=== PATIENT | male | born 1990 | race Caucasian/White ===

== ENCOUNTER 2018-12-21 09:07 | Emergency (ER) | payer OTHER ==
[2018-12-21] MEDS ORDERED: fentaNYL 100 MCG/2 ML SDV IM ONE (10:44)
--- NOTE | 2018-12-21 10:45 | CRLCR ---
INDICATION: Trauma with pain, punched a wall. TECHNIQUE: Three view right hand COMPARISON: None FINDINGS: There is no acute obliquely oriented and mildly displaced intra-articular fracture involving the proximal aspect of the right 3rd metacarpal bone. A small amount of periarticular calcification is noted in the medial carpal articulation region. No other fracture is seen. IMPRESSION: 1. Acute intra-articular and mildly displaced fracture involving the proximal aspect of the right 3rd metacarpal bone. 2. Other findings are as discussed above. Dictated by Yan Squires MD @ Dec 21 2018 10:41AM Signed by Dr. Yan Squires @ Dec 21 2018 10:44AM
--- NOTE | 2018-12-21 10:51 | EDM.PDOC ---
ED HPI GENERAL MEDICAL PROBLEM - General Chief Complaint: Upper Extremity Injury/Pain Stated Complaint: PUNCH THE WALL AT HOME Time Seen by Provider: 12/21/18 10:47 Source of Information: Reports: Patient, RN Notes Reviewed History Limitations: Reports: No Limitations - History of Present Illness INITIAL COMMENTS - FREE TEXT/NARRATIVE: 28-year-old gentleman presents emergency department today after punching a wall he is experiencing pain in his right hand - Related Data Allergies Allergy/AdvReac Type Severity Reaction Status Date / Time No Known Allergies Allergy Verified 12/21/18 09:27 Home Meds: Home Meds NK [No Known Home Meds] 12/21/18 [History] Past Medical History Neurological History: Reports: Brain Injury Social & Family History - Tobacco Use Smoking Status *Q: Current Every Day Smoker Years of Tobacco use: 8 Packs/Tins Daily: 0.2 Review of Systems - Review of Systems Review Of Systems: See Below Constitutional: Reports: No Symptoms Musculoskeletal: Reports: Hand Pain ED EXAM, GENERAL - Physical Exam Exam: See Below Free Text/Narrative:: Examination of the right hand I do appreciate some edema over metacarpal 3 as well as tenderness radial pulses +2 there range of motion or sensation is intact Exam Limited By: No Limitations General Appearance: Alert, WD/WN, No Apparent Distress ED TRAUMA EXTREMITY PROCEDURES - Splinting Right Upper Extremity Splint Site: Third metacarpal right hand Pre-Procedure NV Status: Normal Post-Procedure NV Status: Normal Splint Material: Fiberglass Splint Design: Volar Applied & Form Fitted By: Provider, Nurse Provider Post-Splint Application NV Check: NV Status Normal, Good Position Complications: No Course - Vital Signs Last Recorded V/S: Last Vital Signs Temp 98.3 F 12/21/18 09:32 Pulse 79 12/21/18 09:32 Resp 14 12/21/18 09:32 BP 140/87 12/21/18 09:32 Pulse Ox 95 12/21/18 09:32 - Orders/Labs/Meds Meds: Medications Discontinued Medications Generic Name Dose Route Start Last Admin Trade Name Freq PRN Reason Stop Dose Admin Fentanyl 50 mcg 12/21/18 10:44 Sublimaze IM 12/21/18 10:45 ONETIME ONE Departure - Departure Time of Disposition: 10:52 Disposition: Home, Self-Care 01 Condition: Fair Clinical Impression: Fracture of metacarpal base of right hand, closed Qualifiers: Encounter type: initial encounter Metacarpal bone: third Fracture alignment: displaced Qualified Code(s): S62.312A - Displaced fracture of base of third metacarpal bone, right hand, initial encounter for closed fracture - Discharge Information Referrals: PCP,None [Primary Care Provider] - Forms: ED Department Discharge Additional Instructions: Use ibuprofen for baseline pain control, use hydrocodone for breakthrough pain, orthopedics will call you with an appointment time with Dr. Wilcox next week - Assessment/Plan Plan: Assessment Acuity = acute Site and laterality = third metacarpal fracture at the base closed right hand Etiology = secondary to trauma Manifestations = pain] Location of injury = Home Lab values = x-ray describes a fracture above] Plan Placed in a volar splint, will follow up with orthopedics this week, hydrocodone 5/325 one tab by mouth 3 times a day when necessary #10 provided for pain This note was dictated using [employer] voice recognition software please call with any questions on syntax or grammar.
== END 2018-12-21 11:15 | disposition home or self-care (01) ==
LOC: JP.ED 09:07
DX: S62.312A Displaced fracture of base of third metacarpal bone, right hand, initial encounter for closed fracture (principal); F17.210 Nicotine dependence, cigarettes, uncomplicated; W22.01XA Walked into wall, initial encounter; Y92.009 Unspecified place in unspecified non-institutional (private) residence as the place of occurrence of the external cause
CPT/HCPCS: 29125; 73130; 96372; 99283; J3010

== ENCOUNTER 2021-08-24 21:30 | Emergency (ER) | payer MEDICAID ==
[2021-08-24] MEDS ORDERED: Proparacaine 0.5% Ophth Soln 15 ML Bottle EYELF ONE (21:32)
== END 2021-08-24 22:29 | disposition home or self-care (01) ==
LOC: JP.ED 21:30
DX: T15.02XA Foreign body in cornea, left eye, initial encounter (principal)
CPT/HCPCS: 65220; 99281; 99283-25; A9270-GY